=== PATIENT | female | born 1995 | race Caucasian/White ===

== ENCOUNTER 2018-09-07 07:35 | Emergency (ER) | payer OTHER ==
--- NOTE | 2018-09-07 08:15 | RAD ---
XR Ankle Lt 3 View STANDARD History: Injury Comparison: None. Findings: No acute fracture or malalignment. Soft tissues are unremarkable. No osteochondral defect o f the talar dome. Impression: No acute osseous abnormality.
--- NOTE | 2018-09-07 08:53 | RAD ---
LEFT FOOT THREE VIEWS: HISTORY: Injury. Left foot pain. FINDINGS: No fracture or dislocation is identified. POS: OFF
== END 2018-09-07 08:44 | disposition home or self-care (01) ==
LOC: SCSER 07:35
DX: S93.402A Sprain of unspecified ligament of left ankle, initial encounter (principal); K58.9 Irritable bowel syndrome, unspecified; J45.909 Unspecified asthma, uncomplicated; F41.9 Anxiety disorder, unspecified; F32.9 Major depressive disorder, single episode, unspecified; Z79.51 Long term (current) use of inhaled steroids; W17.2XXA Fall into hole, initial encounter

== ENCOUNTER 2019-08-26 07:41 | Outpatient (CLI) | payer OTHER ==
--- NOTE | 2019-08-26 08:59 | RAD ---
ABDOMEN 2 VIEWS: Date: 08/26/2019 HISTORY: Lower abdominal pain with several bouts of nausea, vomiting, and diarrhea, with some weight loss. FINDINGS: IUD in place. No free intraperitoneal air. Minimal gas or fecal material in the colon. No evidence fo r large or small bowel obstruction. No overt calculus. IMPRESSION: Unremarkable abdomen 2 views. POS: RRE
[2019-08-26 10:42] LABS: #Basophils 0.1 thou/uL (0.0-0.2); #Eosinphils 0.1 thou/uL (0.0-0.7); #Lymphocytes 2.2 thou/uL (1.20-3.40); #Monocytes 0.5 thou/uL (0.11-0.59); %Basophils 1.1 % (0.0-1.0); %Eosinophils 0.9 % (0.0-10.0); %Lymphocytes 32.2 % (21.0-51.0); %Monocytes 7.3 % (0.0-10.0); %Neutrophils 58.4 % (42.0-75.0); Hemoglobin 14.2 g/dL (12.0-16.0); Mean Corpuscular HGB CONC 32.5 g/dL (32.0-36.0); Mean Corpuscular Hemoglobin 29.3 pg (27.0-31.0); Mean Platelet Volume 9.3 fL (7.4-10.4); Platelet Count 221 thou/uL (130-400); Red Blood Cell (RBC) Count 4.86 mill/uL (4.20-5.40); White Blood Cell (WBC) Count 6.8 thou/uL (4.8-10.8)
[2019-08-26 11:45] LABS: ALT (SGPT) 16 U/L (8-55); AST (SGOT) 15 U/L (5-34); Albumin 4.7 g/dL (3.5-5.0); Alkaline Phosphatase 68 U/L (40-110); Anion Gap 13 mmol/L (10-20); BUN (Urea Nitrogen) 11 mg/dL (7.0-18.7); Bilirubin, Total 0.8 mg/dL (0.2-1.2); Calc. Creatinine Clearance 0 mL/min (70-130); Calcium 9.4 mg/dL (7.8-10.44); Carbon Dioxide 27 mmol/L (22-29); Chloride 104 mmol/L (98-107); Estimated GFR-MDRD 70; Globulin 2.5 g/dL (2.4-3.5); Glucose 120 mg/dL (70-105); Potassium 3.7 mmol/L (3.5-5.1); Protein, Total 7.2 g/dL (6.0-8.3); Sodium 140 mmol/L (136-145)
== END 2019-08-26 07:42 | disposition home or self-care (01) ==
LOC: SCSRAD 07:41
PROVIDERS: ATTEND Family Medicine
DX: R10.30 Lower abdominal pain, unspecified (principal); R19.7 Diarrhea, unspecified
CPT/HCPCS: 36415; 74019; 80053; 85025